=== PATIENT | female | born 1975 | race Caucasian/White ===

== ENCOUNTER 2017-09-21 15:25 | Emergency (ER) | payer OTHER ==
[~2017-09-21] VITALS: Ht 172.7 cm; Wt 113.4 kg
[~2017-09-21 15:25] MED LIST: PHENERGAN25 M1 PO
[2017-09-21 15:54] LABS: BILIRUBIN NEGATIVE (NEGATIVE); BLOOD NEGATIVE (NEGATIVE); CLARITY CLEAR (CLEAR); COLOR YELLOW (YELLOW); GLUCOSE NEGATIVE (NEGATIVE); KETONE NEGATIVE (NEGATIVE); LEUKO ESTERASE TRACE (NEGATIVE); NITRITE NEGATIVE (NEGATIVE); SPECIFIC GRAVITY <= 1.005 (1.005-1.030); UROBILINOGEN 0.2 E.U./dl (0.2-1.0)
[2017-09-21 16:03] LABS: BACTERIA 2+; EPITHELIAL CELLS 16-20
[2017-09-21] MEDS ORDERED: MACROBID100 M1 PO (16:10)
== END 2017-09-21 16:14 | disposition home or self-care (01) ==
LOC: ED 15:25
PROVIDERS: Nurse Practitioner Family
DX: N39.0 Urinary tract infection, site not specified (principal); Z88.0 Allergy status to penicillin